=== PATIENT | female | born 1930 | race Caucasian/White ===

== ENCOUNTER 2017-07-20 13:36 | Inpatient (IN) | payer MEDICARE, MEDICAID ==
[~2017-07-20] VITALS: Ht 149.9 cm; Wt 55.8 kg
--- NOTE | 2017-07-20 13:36 | NUR ---
BIBRA 86 FOR GENERALIZED WEAKNESS SINCE TODAY AND PER FAMILY REQUESTS "CHECKUP". NAD NOTED. PT NONVERBAL, OPENS EYES. RR EVEN AND UNLABORED. VSS. PENDING MD SALMON.
--- NOTE | 2017-07-20 13:41 | NUR ---
CALL RECEIVED FROM [facility],[phone], SON'S NUMBER IS [phone]
[2017-07-20] MEDS ORDERED: IV NS 0.9% 500 ML BAG IV ONE (14:00)
[2017-07-20 14:01] LABS: BASOPHILS # (AUTO) 0.1 /CMM (0.0-0.2); BASOPHILS % (AUTO) 0.6 % (0.0-2.0); EOSINOPHILS # (AUTO) 0.4 /CMM (0.0-0.7); EOSINOPHILS % (AUTO) 3.4 % (0.0-6.0); HEMATOCRIT 34 % (33-45); HEMOGLOBIN 11.2 g/dL (11.5-14.8); LYMPHOCYTES # (AUTO) 1.9 /CMM (0.8-4.8); LYMPHOCYTES % (AUTO) 17.5 % (20.0-44.0); MEAN CORPUSCULAR HEMOGLOBIN 29 PG (26.0-33.0); MEAN CORPUSCULAR HGB CONC 33 g/dl (31.0-36.0); MEAN CORPUSCULAR VOLUME 89 fL (82-100); MONOCYTES # (AUTO) 0.6 /CMM (0.1-1.30); MONOCYTES % (AUTO) 5.3 % (2.0-12.0); NEUTROPHILS % (AUTO) 73.2 % (43.0-81.0); PLATELET COUNT (AUTO) 420 /CMM (150-450); RDW COEFFICIENT OF VARIATION 14.4 (11.5-15.0); RED BLOOD CELL COUNT(AUTO) 3.85 MIL/uL (4.0-5.2)
[2017-07-20] MEDS ORDERED: SERT50TA PO (14:07)
[2017-07-20] MEDS ORDERED: LOSA50TA21 PO (14:07)
[2017-07-20] MEDS ORDERED: CLON0.5T4 PO (14:07)
[2017-07-20] MEDS ORDERED: LINA145C PO (14:07)
[2017-07-20] MEDS ORDERED: ALEN70TA45 PO (14:07)
[2017-07-20] MEDS ORDERED: DONE5TAB34 PO (14:07)
[2017-07-20] MEDS ORDERED: CELE-85 PO (14:07)
[2017-07-20] MEDS ORDERED: ASPI-991 PO (14:07)
[2017-07-20] MEDS ORDERED: MIRT30TA7 PO (14:07)
[2017-07-20] MEDS ORDERED: MEMA28CA PO (14:07)
[2017-07-20] MEDS ORDERED: BRIM5DRO3 RIGHTEYE (14:07)
[2017-07-20] MEDS ORDERED: LOVA20TA2 PO (14:07)
[2017-07-20] MEDS ORDERED: TRAM50TA2 PO (14:07)
[2017-07-20] MEDS ORDERED: ZOLP10TA6 PO (14:07)
[2017-07-20 14:09] LABS: CALCIUM, SERUM 8.8 mg/dL (8.5-10.1); CARBON DIOXIDE 22 mmol/L (21-32); CHLORIDE 109 mmol/L (98-107); CREATININE 3.1 mg/dL (0.6-1.3); GLUCOSE 99 mg/dL (74-106); POTASSIUM 5.1 mmol/L (3.5-5.1); SODIUM SERUM 141 mmol/L (136-145); UREA NITROGEN, BLOOD 57 mg/dL (7-18)
[2017-07-20] MEDS ORDERED: AMLO2.5T PO (14:15)
--- NOTE | 2017-07-20 14:19 | NUR ---
PT BACK FROM CT
[2017-07-20 14:24] LABS: TROPONIN I < 0.017 ng/mL (0.00-0.056)
--- NOTE | 2017-07-20 14:45 | NUR ---
URINE OBTAINED SENT TO LAB
[2017-07-20 14:54] LABS: APPEARANCE,URINE Clear (CLEAR); BILIRUBIN,URINE Negative (NEGATIVE); BLOOD, URINE Trace-intact Ery/uL (NEGATIVE); COLOR,URINE Yellow (YELLOW); KETONES,URINE Negative (NEGATIVE); LEUKOCYTE ESTERASE ,URINE Negative (NEGATIVE); NITRITE, URINE Negative (NEGATIVE); PH,URINE 5.5 (5.0-8.0); PROTEIN,URINE 30 mg/dl (NEGATIVE); UGLUCOSE Negative (NEGATIVE); UROBILINOGEN,URINE 0.2 EU/dL (0.2)
[2017-07-20 14:55] LABS: BACTERIA,URINE Few /HPF (None Seen); RBC,URINE 0-2 /HPF (0-2); SQUAMOUS EPITHELIAL CELL,UR Few /HPF (None Seen); WBC,URINE 0-2 /HPF (0-3)
--- NOTE | 2017-07-20 14:58 | NUR ---
DR SHORT,PCP, PAGED AT [phone]
--- NOTE | 2017-07-20 16:18 | NUR ---
REPORT GIVEN TO BLAKE LONDON FOR CORIN
[2017-07-20 17:15] VITALS: BP 156/69
--- NOTE | 2017-07-20 19:00 | NUR ---
MS RN OPENING NOTES PATIENT RESTING IN BED A/O X 2, NO ACUTE DISTRESS NOTED. BREATHING EVEN AND UNLABORED, NO SOB NOTED. SAFETY MEASURES IN PLACE, BED LOCKED AND IN LOWEST POSITION, CALL LIGHT IN REACH. WILL CONTINUE TO MONITOR.
--- NOTE | 2017-07-20 19:00 | NUR ---
RN Notes initial: 1710Recieved patient from ER. Patient admitted for generalized weakness and AMS. Patient alert oriented x2. No facial grimacing is noted. SPO2 at 92%, 2 L nasal cannula placed, and DR alerted. According to son, patient has not eaten in 3 days. Blood sugar assessed immediately and found to be 73. apple juice given to patient. HOB up, patient had no difficulty swallowing. According to son, patient has not urinated today. Bladderscan used: 145 ml noted. MARBLE MACHINE OPERATOR informed me that patient urinated slightly in diaper.Will continue to monitor for that. IV site patent and intact Patient is cooperative. when assessed, patient unable to follow my pen light. Patient unable to dorsiflex and plantarflex with lower extremities. Skin intact. However, slight redness noted on lower back. Patient kept clean and dry. Dr. Zuleta alerted that patient is admitted. According to Dr. Zuleta, she is not the admitting doctor. Dr. Ruiz alerted and aware of patient's labs. Dr. Ruiz will be putting in the orders. Patient stable. Nonlabored breathing noted on 2 L nasal cannula. Patient alert oriented x2. IV site patent and intact. Bed in lowest locked position. Call light within reach. Bed alarm on, endorsed to next shift
[2017-07-20 20:00] VITALS: BP 94/45
[2017-07-20] MEDS ORDERED: ZOLPIDEM TARTRATE 10 MG TABLET PO PRN (20:00)
[2017-07-20] MEDS ORDERED: Medication Not On Formulary EA (Linaclotide (Linzess) 145 MCG) PO PRN (20:00)
[2017-07-20] MEDS ORDERED: MAG HYDROX/AL HYDROX/SIMETH 30 ML UDC PO PRN (20:00)
[2017-07-20] MEDS ORDERED: ACETAMINOPHEN 325 MG TABLET PO PRN (20:00)
[2017-07-20] MEDS ORDERED: TRAMADOL HCL 50 MG TABLET PO PRN (20:00)
[2017-07-20] MEDS ORDERED: HYDROCODONE/APAP 5/325MG 1 EACH TABLET PO PRN (20:00)
[2017-07-20] MEDS ORDERED: Z GUARD REMEDY 2 OZ OINT TP PRN (20:00)
[2017-07-20] MEDS ORDERED: MAGNESIUM HYDROXIDE 30 ML UDC PO PRN (20:00)
[2017-07-20] MEDS ORDERED: ZOLPIDEM TARTRATE 5 MG TABLET PO PRN (20:00)
[2017-07-20] MEDS ORDERED: ONDANSETRON HCL/PF 4 MG/2 ML VIAL IVP PRN (20:00)
[2017-07-20 20:08] LABS: AMYLASE 91 U/L (25-115); LIPASE 147 U/L (73-393)
[2017-07-20] MEDS: BRIMONIDINE TARTRATE OPHT SOLN 5 ML BOTTLE RIGHTEYE SCH (20:23)
[2017-07-20] MEDS: IV NS 0.9% 1,000 ML IV PRN (20:23)
--- NOTE | 2017-07-20 21:33 | NUR ---
MS RN NOTES PLACED A CALL TO HOSPITALIST SPOKE TO DR HAWK AND RELAYED THERE IS NO DIET ORDER PER . CARINE ORDERED TO GIVE DIET ORDER REGULAR DIET NOTED AND CARRIED OUT
[2017-07-20] MEDS: MIRTAZAPINE 15 MG TABLET PO SCH (21:47)
[2017-07-20] MEDS: ATORVASTATIN 10 MG TABLET PO SCH (21:47)
[2017-07-20] MEDS ORDERED: clonazePAM 0.5 MG TABLET PO SCH (22:00)
[2017-07-20] MEDS ORDERED: LOVASTATIN (NON FORMULARY) 20 MG TABLET PO SCH (22:00)
--- NOTE | 2017-07-21 06:21 | NUR ---
MS RN CLOSING NOTES PATIENT COMFORTABLY ASLEEP AND EASILY AWAKEN, HEAD OF BED ELEVATED FOR BETTER LUNG EXPANSION ON 2LPM VIA NC 02 SAT AT 98%, IV SITE NO S/S OF INFILTRATED PATENT AND FLUSHED, NS RUNNING AT 75CC/HR INFUSING WELL. RESPIRATIONS EVEN AND UNLABORED. NO S/S OF ACUTE DISTRESS, NO SOB, SKIN WARM AND DRY TO TOUCH, AFEBRILE, ALL NURSING CARE RENDERED, NEEDS ATTENDED AND ANTICIPATED, KEPT CLEAN AND DRY AND COMFORTABLE, GOOD SKIN CARE PROVIDED. FREQUENT VISUAL CHECK DONE FOR SAFETY EVERY 2 HOURS. REPOSITIONED EVERY 2 HOURS FOR COMFORT AND SKIN MGT. SAFE HAZARD FREE ENVIRONMENT PROVIDED. CALL LIGHT WITHIN EASY TO REACH, ON LOW BED AT ALL TIMES TO ENSURE SAFETY, WILL ENDORSE TO THE NEXT SHIFT CONTINUE PLAN OF CARE.
[2017-07-21 06:55] VITALS: BP 132/64
[2017-07-21 06:57] LABS: BASOPHILS % (AUTO) 0.5 % (0.0-2.0); EOSINOPHILS # (AUTO) 0.4 /CMM (0.0-0.7); EOSINOPHILS % (AUTO) 4.8 % (0.0-6.0); HEMATOCRIT 33 % (33-45); HEMOGLOBIN 10.7 g/dL (11.5-14.8); LYMPHOCYTES # (AUTO) 1.8 /CMM (0.8-4.8); LYMPHOCYTES % (AUTO) 24.5 % (20.0-44.0); MEAN CORPUSCULAR HEMOGLOBIN 30 PG (26.0-33.0); MEAN CORPUSCULAR HGB CONC 33 g/dl (31.0-36.0); MEAN CORPUSCULAR VOLUME 91 fL (82-100); MONOCYTES # (AUTO) 0.4 /CMM (0.1-1.30); NEUTROPHILS # (AUTO) 4.8 /CMM (1.8-8.9); NEUTROPHILS % (AUTO) 64.2 % (43.0-81.0); PLATELET COUNT (AUTO) 338 /CMM (150-450); RDW COEFFICIENT OF VARIATION 14.9 (11.5-15.0); RED BLOOD CELL COUNT(AUTO) 3.64 MIL/uL (4.0-5.2); RETICULOCYTE COUNT 2.1 % (0.6-2.5); WHITE BLOOD COUNT (AUTO) 7.5 K/uL (4.3-11.0)
[2017-07-21 07:01] LABS: ALANINE AMINOTRANSFERASE 20 U/L (12-78); ALKALINE PHOSPHATASE 49 U/L (46-116); ASPARTATE AMINOTRANSFERASE 34 U/L (15-37); BILIRUBIN,DIRECT 0.1 mg/dL (0.0-0.2); BILIRUBIN,TOTAL 0.3 mg/dL (0.2-1.0); CALCIUM, SERUM 8.4 mg/dL (8.5-10.1); CARBON DIOXIDE 21 mmol/L (21-32); CHLORIDE 111 mmol/L (98-107); CHOLESTEROL 149 mg/dL (<200); CREATININE 2.6 mg/dL (0.6-1.3); GLUCOSE 75 mg/dL (74-106); HDL CHOLESTEROL 53 mg/dL (40-60); LDL 77 mg/dL (0-99); MAGNESIUM 2.4 mg/dL (1.8-2.4); PHOSPHORUS 4.1 mg/dL (2.5-4.9); POTASSIUM 4.8 mmol/L (3.5-5.1); PREALBUMIN 14.9 MG/DL (18.0-35.7); SODIUM SERUM 143 mmol/L (136-145); THYROID STIMULATING HORMONE 1.296 uIU/mL (0.358-3.74); TOTAL PROTEIN, SERUM 7.2 g/dL (6.4-8.2); TRIGLYCERIDES 121 mg/dL (30-150); UREA NITROGEN, BLOOD 51 mg/dL (7-18)
[2017-07-21 08:00] VITALS: BP 130/58
--- NOTE | 2017-07-21 08:02 | NUR ---
RN MS NOTES PATIENT ASLEEP BUT EASILY AROUSABLE, IVF INFUSING AND TOLERATING WELL, KEPT PATIENT COMFORTABLE, BREATHING EVEN AND UNLABORED, NO DISTRESS NOTED, NEEDS ATTENDED AND MET, CALL LIGHT WITHIN REACH, SAFETY MEASURES IN PLACED, BED ALARM ON, WILL CONTINUE TO MONITOR.
[2017-07-21 08:04] LABS: INR 0.9 (0.87-1.13); PROTHROMBIN TIME 9.4 SECS (9.5-12.7)
[2017-07-21 08:07] LABS: IRON, SERUM 20 ug/dl (50-175); TOTAL IRON BINDING CAPACITY 320 ug/dl (250-450)
[2017-07-21] MEDS: DONEPEZIL 5 MG TABLET PO SCH (08:57)
[2017-07-21] MEDS: ASPIRIN EC 81 MG TABLET.DR PO SCH (08:57)
[2017-07-21] MEDS: MEMANTINE HCL 5 MG TABLET PO SCH ×2 (08:57→16:42)
[2017-07-21] MEDS: SERTRALINE HCL 50 MG TABLET PO SCH (08:57)
[2017-07-21] MEDS: BRIMONIDINE TARTRATE OPHT SOLN 5 ML BOTTLE RIGHTEYE SCH ×2 (08:58→16:41)
[2017-07-21] MEDS: AMLODIPINE BESYLATE 2.5 MG TABLET PO SCH (08:58)
[2017-07-21 10:29] LABS: APPEARANCE,URINE CLEAR (CLEAR); BILIRUBIN,URINE NEGATIVE (NEGATIVE); BLOOD, URINE 1+ Ery/uL (NEGATIVE); COLOR,URINE YELLOW (YELLOW); KETONES,URINE NEGATIVE (NEGATIVE); LEUKOCYTE ESTERASE ,URINE NEGATIVE (NEGATIVE); NITRITE, URINE NEGATIVE (NEGATIVE); PROTEIN,URINE NEGATIVE (NEGATIVE); UGLUCOSE NEGATIVE (NEGATIVE); UROBILINOGEN,URINE 0.2 EU/dL (0.2)
[2017-07-21 10:53] LABS: BACTERIA,URINE Few /HPF (None Seen); MUCUS,URINE Few /LPF (None Seen); SQUAMOUS EPITHELIAL CELL,UR 0-2 /HPF (None Seen); URINE AMORPHOUS URATE Few /HPF (None Seen); WBC,URINE 0-2 /HPF (0-3)
--- NOTE | 2017-07-21 12:03 | NUR ---
RN MS NOTES INFORMED DR. TABARES, PATIENT'S SON REPORTED DISCONTINUANCE OF LINZESS AND CLONAZEPAM, PER , OK TO DC BOTH.
[2017-07-21 16:00] VITALS: BP 129/68
[2017-07-21] MEDS: IV NS 0.9% 1,000 ML IV PRN (16:40)
--- NOTE | 2017-07-21 18:48 | NUR ---
RN MS NOTES PATIENT ALERT AND ORIENTED X1-2, RESTING QUIETLY, BREATHING EVEN AND UNLABORED, NO DISTRESS NOTED, PIV ON LEFT AC PATENT AND FLUSHES WELL WITH NS RUNNING AT 75ML/HR, SKIN CARE PROVIDED, Z-GUARD APPLIED AND MEPILEX ON SACRAL AREA FOR PROTECTION, PATIENT WAS SEEN BY DR. KAY WITH NO ORDERS. NEEDS ATTENDED AND MET, CALL LIGHT WITHIN REACH, BED ALARM ON, SIDERAILS X2 UP, LOW BED AND LOCKED, WILL ENDORSE TO PAYROLL TAX ANALYST FOR CORIN.
--- NOTE | 2017-07-21 19:50 | NUR ---
RN INITIAL NOTES: RECEIVED REPORT FROM TERI LONDON, PT IN BED, SLEEPING, AROUSES TO TACTILE STIMULI, PT A/O X1-2 FARSI SPEAKING, NO FACIAL GRIMACE NOTED, APPEARS CALM AND COMFORTABLE,ON 2L VIA NC, RESPIRATION EVEN AND UNLABORED, PT HAS LEFT AC IV ACCESS PATENT AND FLUSHING WELL, INFUSING WITH NS AT 75ML/HR, BLE OFFLOADED. SAFETY PRECAUTIONS FOR FALL INITIATED CALL LIGHT IN REACH, WILL CONTINUE TO MONITOR.
[2017-07-21 20:00] VITALS: BP 124/66
[2017-07-21 20:25] VITALS: BP 124/66
[2017-07-21] MEDS: ATORVASTATIN 10 MG TABLET PO SCH (21:08)
[2017-07-21] MEDS: MIRTAZAPINE 15 MG TABLET PO SCH (21:08)
--- NOTE | 2017-07-21 21:30 | NUR ---
RN NOTES: PLACED ON HIGH FOWLERS POSITION, MEDICATION WAS CRUSHED PUT IN APPLE SAUCE, ALSO USED THICKENER MIXED INTO PT'S CRANBERRY JUICE, PT TOOK ALL DUE MEDS, NO ASPIRATION NOTED, ASPIRATION PROTOCOL FOLLOWED, ORAL CARE PROVIDED AFTER FEEING THE PT,
--- NOTE | 2017-07-21 22:00 | NUR ---
RN NOTES: IV ACCESS NOTED TO BE INFILTRATED, STOPPED THE IV, DISCONNECT THE PT, TRIED TO RESTART ANOTHER IV ACCESS BUT UNSUCCESSFUL, LITA LAGUNAS AND LITA CHRIS TRIED TWICE, BUT PT HAS VERY TINY VEINS AND THE NEEDLE IS BIGGER THAN HER VEIN, EVEN TRIED TO USE G24, BUT UNSUCCESSFUL, TRIED INSERTING ON FOOT, UNSUCCESSFUL, WILL CALL PLANNING ADVISOR BRUCE TO OBTAIN ORDER FOR MIDLINE, PT NEEDS IVF TO KEEP HER HYDRATED,
[2017-07-22] MEDS: IV NS 0.9% 1,000 ML IV PRN (05:46)
[2017-07-22 06:36] LABS: CALCIUM, SERUM 8.4 mg/dL (8.5-10.1); CARBON DIOXIDE 21 mmol/L (21-32); CHLORIDE 115 mmol/L (98-107); CREATININE 1.8 mg/dL (0.6-1.3); GLUCOSE 75 mg/dL (74-106); MAGNESIUM 1.9 mg/dL (1.8-2.4); PHOSPHORUS 3.3 mg/dL (2.5-4.9); POTASSIUM 4.7 mmol/L (3.5-5.1); SODIUM SERUM 146 mmol/L (136-145); UREA NITROGEN, BLOOD 36 mg/dL (7-18)
[2017-07-22 06:39] LABS: BASOPHILS # (AUTO) 0.1 /CMM (0.0-0.2); BASOPHILS % (AUTO) 0.8 % (0.0-2.0); EOSINOPHILS # (AUTO) 0.2 /CMM (0.0-0.7); EOSINOPHILS % (AUTO) 3.2 % (0.0-6.0); HEMATOCRIT 32 % (33-45); HEMOGLOBIN 10.2 g/dL (11.5-14.8); LYMPHOCYTES # (AUTO) 1.9 /CMM (0.8-4.8); LYMPHOCYTES % (AUTO) 24.8 % (20.0-44.0); MEAN CORPUSCULAR HEMOGLOBIN 29 PG (26.0-33.0); MEAN CORPUSCULAR HGB CONC 32 g/dl (31.0-36.0); MEAN CORPUSCULAR VOLUME 91 fL (82-100); MONOCYTES # (AUTO) 0.6 /CMM (0.1-1.30); MONOCYTES % (AUTO) 7.6 % (2.0-12.0); NEUTROPHILS # (AUTO) 4.8 /CMM (1.8-8.9); NEUTROPHILS % (AUTO) 63.6 % (43.0-81.0); PLATELET COUNT (AUTO) 314 /CMM (150-450); RDW COEFFICIENT OF VARIATION 14.9 (11.5-15.0); WHITE BLOOD COUNT (AUTO) 7.5 K/uL (4.3-11.0)
--- NOTE | 2017-07-22 07:00 | NUR ---
RN CLOSING NOTES: PT IN BED, ON 2L VIA NC, RESPIRATION EVEN AND UNLABORED, NO FACIAL GRIMACE NOTED, OBI MIDLINE IV ACCESS REMAINS PATENT AND FLUSHING WELL, INFUSING WITH NS AT 75ML/HR. VS REMAINS STABLE, NEEDS ATTENDED. SAFETY PRECAUTIONS FOR FALL REMAINS ENGAGED, CALL LIGHT IN REACH, WILL ENDORSE TO DAY RN FOR CORIN
--- NOTE | 2017-07-22 07:20 | NUR ---
MS RN Notes: Patient resting in bed. Non-labored breathing noted on 2 L nasal cannula. No facial grimaces noted. Midline on right upper arm patent and intact. Bed in lowest locked position. Call light within reach. Will continue to monitor.
[2017-07-22 08:00] VITALS: BP 136/69
[2017-07-22] MEDS: MEMANTINE HCL 5 MG TABLET PO SCH ×2 (09:43→16:09)
[2017-07-22] MEDS: ASPIRIN EC 81 MG TABLET.DR PO SCH (09:43)
[2017-07-22] MEDS: AMLODIPINE BESYLATE 2.5 MG TABLET PO SCH (09:45)
[2017-07-22] MEDS: DONEPEZIL 5 MG TABLET PO SCH (09:45)
[2017-07-22] MEDS: SERTRALINE HCL 50 MG TABLET PO SCH (09:45)
[2017-07-22] MEDS: BRIMONIDINE TARTRATE OPHT SOLN 5 ML BOTTLE RIGHTEYE SCH ×2 (10:08→16:10)
--- NOTE | 2017-07-22 11:10 | NUR ---
RN NOTES: PATIENT REFUSED TO EAT BREAKFAST IN THE MORNING. PATIENT OFFERED MULTIPLE TIMES. PATIENT DID DRINK A BOX OF ORANGE JUICE. DR TABARES ORDERED BOOST. IS AWARE OF RECENT LAB, FLUIDS TO BE STOPPED TODAY DUE TO THE INCREASE IN SODIUM
[2017-07-22] MEDS: IV 1/2NS 1000 ML 1,000 ML IV PRN (12:33)
[2017-07-22] MEDS: BOOST PLUS FOOD-CHOCLATE 237 ML BOX PO SCH ×2 (15:49→16:12)
[2017-07-22 16:00] VITALS: BP 129/79
--- NOTE | 2017-07-22 18:43 | NUR ---
MS RN Closing Notes: Patient resting in bed. Non-labored breathing noted on 2 L nasal cannula. No facial grimaces noted. Patient alert oriented x2. Midline on right upper arm patent and intact. Bed in lowest locked position. Call light within reach. Will endorse to next shift
--- NOTE | 2017-07-22 18:49 | NUR ---
MS RN Closing Notes: Patient resting in bed. Non-labored breathing noted on 2 L nasal cannula. No facial grimaces noted. Patient alert oriented x2. Midline on right upper arm patent and intact. Bed in lowest locked position. During shift, patient turned and repositioned every 2 hours. Patient kept clean and dry. Call light within reach. Will endorse to next shift
--- NOTE | 2017-07-22 19:35 | NUR ---
RN INITIAL NOTES: RECEIVED REPORT FROM BLAKE LONDON, PT IN BED, SLEEPING, AROUSES TO TACTILE STIMULI, PT A/O X2 FARSI SPEAKING, NO FACIAL GRIMACE NOTED, APPEARS CALM AND COMFORTABLE,ON 2L VIA NC, RESPIRATION EVEN AND UNLABORED, SON AT BED SIDE, PER SON PT ABLE TO EAT 5 SPOONFUL OF SOUP,PT HAS OBI MIDLINE, PATENT AND FLUSHING WELL, INFUSING WITH 1/2 NS AT 75ML/HR, BLE OFFLOADED. SAFETY PRECAUTIONS FOR FALL INITIATED CALL LIGHT IN REACH, WILL CONTINUE TO MONITOR.
[2017-07-22 20:00] VITALS: BP 138/74
[2017-07-22] MEDS: MIRTAZAPINE 15 MG TABLET PO SCH (21:48)
[2017-07-22] MEDS: ATORVASTATIN 10 MG TABLET PO SCH (21:48)
--- NOTE | 2017-07-22 21:48 | NUR ---
RN NOTES: DUE MEDS GIVEN AT THIS TIME, PT ABLE TO SWALLOW MEDICATION. FEED THE PT WITH APPLE SAUCE AND CRANBERRY JUICE WITH THICKENER, PT HAS POOR ORAL INTAKE, NO ASPIRATION NOTED,
[2017-07-23] MEDS: IV 1/2NS 1000 ML 1,000 ML IV PRN ×2 (00:08→15:32)
[2017-07-23 06:19] LABS: BASOPHILS % (AUTO) 0.5 % (0.0-2.0); EOSINOPHILS # (AUTO) 0.1 /CMM (0.0-0.7); EOSINOPHILS % (AUTO) 1.8 % (0.0-6.0); HEMATOCRIT 28 % (33-45); HEMOGLOBIN 9.3 g/dL (11.5-14.8); LYMPHOCYTES # (AUTO) 1.7 /CMM (0.8-4.8); LYMPHOCYTES % (AUTO) 20.5 % (20.0-44.0); MEAN CORPUSCULAR HEMOGLOBIN 30 PG (26.0-33.0); MEAN CORPUSCULAR HGB CONC 33 g/dl (31.0-36.0); MEAN CORPUSCULAR VOLUME 90 fL (82-100); MONOCYTES # (AUTO) 0.7 /CMM (0.1-1.30); MONOCYTES % (AUTO) 7.9 % (2.0-12.0); NEUTROPHILS # (AUTO) 5.8 /CMM (1.8-8.9); NEUTROPHILS % (AUTO) 69.3 % (43.0-81.0); PLATELET COUNT (AUTO) 304 /CMM (150-450); RDW COEFFICIENT OF VARIATION 14.3 (11.5-15.0); RED BLOOD CELL COUNT(AUTO) 3.14 MIL/uL (4.0-5.2); WHITE BLOOD COUNT (AUTO) 8.3 K/uL (4.3-11.0)
--- NOTE | 2017-07-23 06:41 | NUR ---
RN CLOSING NOTES: PT IN BED, SLEEPING, NO FACIAL GRIMACE NOTED, APPEARS CALM AND COMFORTABLE, ON 2L VIA NC, RESPIRATION EVEN AND UNLABORED, OBI MIDLINE REMAINS PATENT AND FLUSHING WELL, INFUSING WITH 1/2 NS AT 75ML/HR. VS REMAINS STABLE, NEEDS ATTENDED. SAFETY PRECAUTIONS FOR FALL REMAINS ENGAGED, CALL LIGHT IN REACH, WILL ENDORSE TO DAY RN FOR CORIN
[2017-07-23 06:47] LABS: CALCIUM, SERUM 8.2 mg/dL (8.5-10.1); CARBON DIOXIDE 21 mmol/L (21-32); CHLORIDE 115 mmol/L (98-107); CREATININE 1.5 mg/dL (0.6-1.3); GLUCOSE 86 mg/dL (74-106); MAGNESIUM 1.7 mg/dL (1.8-2.4); POTASSIUM 4.2 mmol/L (3.5-5.1); SODIUM SERUM 145 mmol/L (136-145); UREA NITROGEN, BLOOD 26 mg/dL (7-18)
--- NOTE | 2017-07-23 07:18 | NUR ---
RN Initial Notes: Patient resting in bed. Patient alert oriented x2. Non-labored breathing noted on 2 L nasal cannula. No facial grimaces noted. Midline on right upper arm patent and intact. Bed in lowest locked position, and call light within reach. Will continue to monitor.
[2017-07-23 08:00] VITALS: BP 155/81
[2017-07-23] MEDS: ASPIRIN EC 81 MG TABLET.DR PO SCH (08:28)
[2017-07-23] MEDS: SERTRALINE HCL 50 MG TABLET PO SCH (08:28)
[2017-07-23] MEDS: DONEPEZIL 5 MG TABLET PO SCH (08:28)
[2017-07-23] MEDS: MEMANTINE HCL 5 MG TABLET PO SCH ×2 (08:28→16:30)
[2017-07-23] MEDS: AMLODIPINE BESYLATE 2.5 MG TABLET PO SCH (08:29)
[2017-07-23] MEDS: BRIMONIDINE TARTRATE OPHT SOLN 5 ML BOTTLE RIGHTEYE SCH ×2 (08:29→16:31)
[2017-07-23] MEDS: BOOST PLUS FOOD-CHOCLATE 237 ML BOX PO SCH ×2 (10:51→16:30)
[2017-07-23] MEDS: Magnesium 1GM/D5W 100ML PREMIX 100 ML IV SCH ×2 (10:55→12:29)
[2017-07-23] MEDS ORDERED: K PHOS NEUTRAL 250 MG TABLET PO ONE (11:00)
[2017-07-23 16:00] VITALS: BP 149/74
--- NOTE | 2017-07-23 17:00 | NUR ---
MS RN CLOSING: PATIENT DISCHARGED TO [facility] PER MD ORDERS. NONLABORED BREATHING NOTED ON 2 L NASAL CANNULA. NO SIGNS OF DISTRESS NOTED. NO FACIAL GRIMACES NOTED. PATIENT ALERT ORIENTED X2, VERBAL. SON, MARY, INFORMED OF DISCHARGE. VALUABLES ACCOUNTED FOR. 1 NIGHT GOWN WAS PART OF PATIENT'S BELONGINGS THAT WAS TAKEN HOME ON ADMISSION DAY BY SON. SON AND PATIENT EDUCATED ON EXISTCARE. SON SAID HE WILL FOLLOW UP WITH THE PATIENT'S VACCINATIONS. ACCORDING TO HIM PATIENT HAS RECEIVED BUT UNSURE WHEN. SACRAL REDNESS SKIN PICTURE IN CHART. MIDLINE TAKEN OUT, NO SIGNS OF DISTRESS NOR ADVERSE EFFECTS ARE NOTED. REPORT GIVEN TO LITA FRAZIER, AT [facility]. PATIENT LEFT VIA AMBULANCE.
[2017-07-24] MEDS ORDERED: ALENDRONATE 70 MG TABLET PO SCH (09:00)
== END 2017-07-23 17:00 | DRG 682 ==
LOC: ER 13:38 → MED 16:40
PROVIDERS: ADMIT Internal Medicine; ATTEND Internal Medicine
PROC: 05H533Z Insertion of Infusion Device into Right Subclavian Vein, Percutaneous Approach (ICD-10-PCS; principal; 2017-07-22)
DX: N17.0 Acute kidney failure with tubular necrosis (principal); G93.41 Metabolic encephalopathy; E87.0 Hyperosmolality and hypernatremia; G62.9 Polyneuropathy, unspecified; E86.0 Dehydration; F32.9 Major depressive disorder, single episode, unspecified; E78.5 Hyperlipidemia, unspecified; I12.9 Hypertensive chronic kidney disease with stage 1 through stage 4 chronic kidney disease, or unspecified chronic kidney disease; N18.9 Chronic kidney disease, unspecified; K21.9 Gastro-esophageal reflux disease without esophagitis; L98.9 Disorder of the skin and subcutaneous tissue, unspecified; F03.90 Unspecified dementia, unspecified severity, without behavioral disturbance, psychotic disturbance, mood disturbance, and anxiety; D64.9 Anemia, unspecified; H40.9 Unspecified glaucoma
CPT/HCPCS: 36415; 36569; 70450-TC; 71010-TC; 80048-TC; 80053-TC; 80061-TC; 80076-TC; 81000-TC; 82150-TC; 82746; 82962-TC; 83540-TC; 83690-TC; 83735-TC; 84100-TC; 84134-TC; 84443-TC; 84484-TC; 85025-TC; 85045-TC; 85652-TC; 85730-TC; 87040-TC; 87081-TC; 87086-TC; 87186-TC; 92611-TC; 93307-TC; A4606; A6402; J3475; J3490; J7030; J7040; Z7610

== ENCOUNTER 2018-02-07 17:10 | Inpatient (IN) | payer MEDICARE, MEDICAID ==
[~2018-02-07] VITALS: Ht 152.4 cm; Wt 43.5 kg
[~2018-02-07 17:10] MED LIST: ALEN70TA45 PO; AMLO2.5T3 PO; ASPI-1152 PO; BRIM5DRO3 RIGHTEYE; CLON0.5T12 PO; DONE5TAB34 PO; LINA145C PO; LOSA50TA21 PO; LOVA20TA2 PO; MEMA28CA PO
[2018-02-07 17:43] LABS: BASOPHILS % (AUTO) 0.3 % (0.0-2.0); EOSINOPHILS % (AUTO) 0.7 % (0.0-6.0); HEMATOCRIT 32 % (33-45); HEMOGLOBIN 10.7 g/dL (11.5-14.8); LYMPHOCYTES # (AUTO) 1.8 /CMM (0.8-4.8); LYMPHOCYTES % (AUTO) 17.5 % (20.0-44.0); MEAN CORPUSCULAR HGB CONC 34 g/dl (31.0-36.0); MEAN CORPUSCULAR VOLUME 89 fL (82-100); MONOCYTES # (AUTO) 0.8 /CMM (0.1-1.30); MONOCYTES % (AUTO) 7.6 % (2.0-12.0); NEUTROPHILS # (AUTO) 7.3 /CMM (1.8-8.9); NEUTROPHILS % (AUTO) 73.9 % (43.0-81.0); PLATELET COUNT (AUTO) 330 /CMM (150-450); RDW COEFFICIENT OF VARIATION 15.8 (11.5-15.0); RED BLOOD CELL COUNT(AUTO) 3.57 MIL/uL (4.0-5.2)
[2018-02-07 17:56] LABS: CALCIUM, SERUM 9.3 mg/dL (8.5-10.1); CARBON DIOXIDE 18 mmol/L (21-32); CHLORIDE 116 mmol/L (98-107); CREATININE 3.4 mg/dL (0.6-1.3); GLUCOSE 81 mg/dL (74-106); POTASSIUM 4.5 mmol/L (3.5-5.1); SODIUM SERUM 149 mmol/L (136-145); UREA NITROGEN, BLOOD 56 mg/dL (7-18)
[2018-02-07 17:59] LABS: INR 0.99 (0.85-1.15)
[2018-02-07 18:02] LABS: ALANINE AMINOTRANSFERASE 12 U/L (12-78); ALBUMIN 2.5 g/dL (3.4-5.0); ALKALINE PHOSPHATASE 48 U/L (46-116); ASPARTATE AMINOTRANSFERASE 13 U/L (15-37); BILIRUBIN,DIRECT 0.1 mg/dL (0.0-0.2); BILIRUBIN,TOTAL 0.3 mg/dL (0.2-1.0)
[2018-02-07 18:04] LABS: TROPONIN I < 0.017 ng/mL (0.00-0.056)
[2018-02-07 18:07] LABS: APPEARANCE,URINE Cloudy (CLEAR); BILIRUBIN,URINE Negative (NEGATIVE); BLOOD, URINE Moderate Ery/uL (NEGATIVE); COLOR,URINE Yellow (YELLOW); KETONES,URINE Negative (NEGATIVE); LEUKOCYTE ESTERASE ,URINE Trace (NEGATIVE); NITRITE, URINE Negative (NEGATIVE); PH,URINE 5.5 (5.0-8.0); PROTEIN,URINE 30 mg/dl (NEGATIVE); UGLUCOSE Negative (NEGATIVE); UROBILINOGEN,URINE 0.2 EU/dL (0.2)
[2018-02-07 18:10] LABS: BACTERIA,URINE Few /HPF (None Seen); SQUAMOUS EPITHELIAL CELL,UR Few /HPF (None Seen)
[2018-02-07] MEDS ORDERED: IV NS 0.9% 500 ML BAG IV ONE (18:30)
[2018-02-07] MEDS ORDERED: SERT50TA PO (18:31)
[2018-02-07] MEDS ORDERED: MIRT30TA7 PO (18:31)
[2018-02-07] MEDS ORDERED: ZOLP10TA6 PO (18:31)
[2018-02-07] MEDS ORDERED: CELE-85 PO (18:31)
[2018-02-07] MEDS ORDERED: IV NS 0.9% 1,000 ML BAG IV ONE (19:00)
[2018-02-07] MEDS ORDERED: PIPERACILLIN /TAZOBACTAM 2.25 G in IV D5W 50 ML IV ONE (19:00)
[2018-02-07 20:30] VITALS: BP 119/62
[2018-02-07] MEDS ORDERED: HYDROCODONE/APAP 5/325MG 1 EACH TABLET PO PRN (21:00)
[2018-02-07] MEDS ORDERED: ACETAMINOPHEN 325 MG TABLET PO PRN (21:00)
[2018-02-07] MEDS ORDERED: ONDANSETRON HCL/PF 4 MG/2 ML VIAL IVP PRN (21:00)
[2018-02-07] MEDS ORDERED: MAG HYDROX/AL HYDROX/SIMETH 30 ML UDC PO PRN (21:00)
[2018-02-07] MEDS ORDERED: IV D5/ 0.9% NACL 1,000 ML IV PRN (21:30)
[2018-02-07] MEDS ORDERED: DEXTROSE 50%-WATER 50 ML DISP.SYRIN IV PRN (21:30)
[2018-02-07] MEDS: HEPARIN SODIUM, PORCINE 5000 UNITS/1 ML VIAL SQ SCH (21:31)
[2018-02-07] MEDS ORDERED: CEFTRIAXONE 1 G VIAL ONE (21:34)
[2018-02-07] MEDS: CEFTRIAXONE 1 G in IV D5W 50 ML IV SCH (21:38)
[2018-02-07] MEDS: BLOOD SUGAR DIAGNOSTIC 1 EACH STRIP IN SCH (23:38)
[2018-02-08] MEDS: BLOOD SUGAR DIAGNOSTIC 1 EACH STRIP IN SCH ×4 (05:28→23:12)
[2018-02-08 06:31] LABS: BASOPHILS % (AUTO) 0.4 % (0.0-2.0); EOSINOPHILS % (AUTO) 1.1 % (0.0-6.0); HEMATOCRIT 28 % (33-45); HEMOGLOBIN 9.1 g/dL (11.5-14.8); LYMPHOCYTES # (AUTO) 1.2 /CMM (0.8-4.8); LYMPHOCYTES % (AUTO) 17.6 % (20.0-44.0); MEAN CORPUSCULAR HGB CONC 33 g/dl (31.0-36.0); MEAN CORPUSCULAR VOLUME 89 fL (82-100); MONOCYTES # (AUTO) 0.6 /CMM (0.1-1.30); MONOCYTES % (AUTO) 9.6 % (2.0-12.0); NEUTROPHILS # (AUTO) 4.8 /CMM (1.8-8.9); NEUTROPHILS % (AUTO) 71.3 % (43.0-81.0); PLATELET COUNT (AUTO) 272 /CMM (150-450); RDW COEFFICIENT OF VARIATION 16.3 (11.5-15.0); WHITE BLOOD COUNT (AUTO) 6.7 K/uL (4.3-11.0)
[2018-02-08 06:52] LABS: CALCIUM, SERUM 8.1 mg/dL (8.5-10.1); CARBON DIOXIDE 17 mmol/L (21-32); CHLORIDE 117 mmol/L (98-107); CREATININE 2.8 mg/dL (0.6-1.3); GLUCOSE 138 mg/dL (74-106); MAGNESIUM 1.6 mg/dL (1.8-2.4); PHOSPHORUS 2.1 mg/dL (2.5-4.9); POTASSIUM 3.2 mmol/L (3.5-5.1); SODIUM SERUM 148 mmol/L (136-145); UREA NITROGEN, BLOOD 45 mg/dL (7-18)
[2018-02-08 06:56] LABS: CHOLESTEROL 119 mg/dL (<200); HDL CHOLESTEROL 43 mg/dL (40-60); LDL 55 mg/dL (0-99); TRIGLYCERIDES 118 mg/dL (30-150)
[2018-02-08 08:00] VITALS: BP 108/51
[2018-02-08] MEDS: HEPARIN SODIUM, PORCINE 5000 UNITS/1 ML VIAL SQ SCH ×2 (09:12→22:23)
[2018-02-08] MEDS ORDERED: Magnesium 1 GM/2 ML VIAL IV ONE (09:30)
[2018-02-08] MEDS ORDERED: POTASSIUM CL. PREMIX PERIPHER. 50 ML IV SCH (09:30)
[2018-02-08] MEDS ORDERED: IV D5W 1,000 ML IV ONE (10:00)
[2018-02-08] MEDS: Magnesium 1GM/D5W 100ML PREMIX 100 ML IV SCH ×2 (10:23→11:08)
[2018-02-08] MEDS: Potassium Phosphate meq 11 MEQ in IV D5W 100 ML IV SCH ×2 (12:33→14:48)
[2018-02-08 16:00] VITALS: BP 107/58
[2018-02-08] MEDS: ALPHAGAN P 0.1% EACHEYE SCH (17:54)
[2018-02-08 20:00] VITALS: BP 141/68
[2018-02-08 21:33] VITALS: BP 141/68
[2018-02-08] MEDS: CEFTRIAXONE 1 G in IV D5W 50 ML IV SCH (22:22)
[2018-02-08 22:45] LABS: APPEARANCE,URINE CLOUDY (CLEAR); BILIRUBIN,URINE NEGATIVE (NEGATIVE); BLOOD, URINE 1+ Ery/uL (NEGATIVE); COLOR,URINE YELLOW (YELLOW); KETONES,URINE NEGATIVE (NEGATIVE); LEUKOCYTE ESTERASE ,URINE 3+ (NEGATIVE); NITRITE, URINE NEGATIVE (NEGATIVE); PROTEIN,URINE TRACE mg/dl (NEGATIVE); UGLUCOSE NEGATIVE (NEGATIVE); UROBILINOGEN,URINE 0.2 EU/dL (0.2)
[2018-02-08 23:05] LABS: BACTERIA,URINE 1+ /HPF (None Seen); SQUAMOUS EPITHELIAL CELL,UR Few /HPF (None Seen); WBC,URINE 81-100 /HPF (0-3)
[2018-02-09 01:54] LABS: EOSINOPHIL,URINE None Seen
[2018-02-09] MEDS: BLOOD SUGAR DIAGNOSTIC 1 EACH STRIP IN SCH ×3 (05:47→17:14)
[2018-02-09 07:40] VITALS: BP 113/75
[2018-02-09 08:00] VITALS: BP 113/75
[2018-02-09] MEDS: ALPHAGAN P 0.1% EACHEYE SCH ×2 (08:50→17:12)
[2018-02-09] MEDS: HEPARIN SODIUM, PORCINE 5000 UNITS/1 ML VIAL SQ SCH ×2 (08:53→22:45)
[2018-02-09] MEDS: BRIMONIDINE TARTRATE OPHT SOLN 5 ML BOTTLE EACHEYE SCH ×3 (09:00→17:18)
[2018-02-09 10:18] LABS: BASOPHILS % (AUTO) 0.4 % (0.0-2.0); EOSINOPHILS % (AUTO) 2.2 % (0.0-6.0); HEMATOCRIT 26 % (33-45); HEMOGLOBIN 8.8 g/dL (11.5-14.8); LYMPHOCYTES # (AUTO) 1.5 /CMM (0.8-4.8); LYMPHOCYTES % (AUTO) 23.4 % (20.0-44.0); MEAN CORPUSCULAR HGB CONC 33 g/dl (31.0-36.0); MEAN CORPUSCULAR VOLUME 88 fL (82-100); MONOCYTES # (AUTO) 0.5 /CMM (0.1-1.30); MONOCYTES % (AUTO) 7.9 % (2.0-12.0); NEUTROPHILS # (AUTO) 4.1 /CMM (1.8-8.9); NEUTROPHILS % (AUTO) 66.1 % (43.0-81.0); PLATELET COUNT (AUTO) 274 /CMM (150-450); RDW COEFFICIENT OF VARIATION 16.2 (11.5-15.0); RED BLOOD CELL COUNT(AUTO) 3.01 MIL/uL (4.0-5.2); WHITE BLOOD COUNT (AUTO) 6.2 K/uL (4.3-11.0)
[2018-02-09 10:48] LABS: CARBON DIOXIDE 20 mmol/L (21-32); CHLORIDE 112 mmol/L (98-107); CREATININE 2.4 mg/dL (0.6-1.3); GLUCOSE 119 mg/dL (74-106); POTASSIUM 2.9 mmol/L (3.5-5.1); SODIUM SERUM 144 mmol/L (136-145); UREA NITROGEN, BLOOD 33 mg/dL (7-18)
[2018-02-09] MEDS ORDERED: Potassium Chloride 20 MEQ in IV D5W 1,000 ML IV PRN (11:30)
[2018-02-09] MEDS: POTASSIUM CL. PREMIX PERIPHER. 50 ML IV SCH ×2 (11:45→12:30)
[2018-02-09] MEDS ORDERED: POTASSIUM CHLORIDE 10 MEQ TABLET.SA PO ONE (14:00)
[2018-02-09] MEDS ORDERED: Potassium Chloride 20 MEQ in IV D5W 1,000 ML IV ONE (14:00)
[2018-02-09 16:00] VITALS: BP_SYST 100; BP_DIAS 63; BP_DIAS 65
[2018-02-09 20:00] VITALS: BP 90/51
[2018-02-09] MEDS: CEFTRIAXONE 1 G in IV D5W 50 ML IV SCH (22:35)
[2018-02-10] MEDS: BLOOD SUGAR DIAGNOSTIC 1 EACH STRIP IN SCH ×5 (00:13→23:56)
[2018-02-10 06:43] LABS: BASOPHILS % (AUTO) 0.6 % (0.0-2.0); EOSINOPHILS % (AUTO) 3.4 % (0.0-6.0); HEMATOCRIT 27 % (33-45); HEMOGLOBIN 9.1 g/dL (11.5-14.8); LYMPHOCYTES # (AUTO) 2.5 /CMM (0.8-4.8); MEAN CORPUSCULAR HGB CONC 33 g/dl (31.0-36.0); MEAN CORPUSCULAR VOLUME 89 fL (82-100); MONOCYTES # (AUTO) 0.5 /CMM (0.1-1.30); MONOCYTES % (AUTO) 8.4 % (2.0-12.0); NEUTROPHILS # (AUTO) 2.9 /CMM (1.8-8.9); NEUTROPHILS % (AUTO) 46.6 % (43.0-81.0); PLATELET COUNT (AUTO) 269 /CMM (150-450); RDW COEFFICIENT OF VARIATION 16.5 (11.5-15.0); RED BLOOD CELL COUNT(AUTO) 3.07 MIL/uL (4.0-5.2); WHITE BLOOD COUNT (AUTO) 6.2 K/uL (4.3-11.0)
[2018-02-10 07:09] LABS: CARBON DIOXIDE 18 mmol/L (21-32); CHLORIDE 111 mmol/L (98-107); CREATININE 2.2 mg/dL (0.6-1.3); GLUCOSE 92 mg/dL (74-106); MAGNESIUM 1.9 mg/dL (1.8-2.4); PHOSPHORUS 2.3 mg/dL (2.5-4.9); POTASSIUM 4.9 mmol/L (3.5-5.1); SODIUM SERUM 139 mmol/L (136-145); UREA NITROGEN, BLOOD 27 mg/dL (7-18)
[2018-02-10 08:10] VITALS: BP_SYST 117
[2018-02-10] MEDS: ALPHAGAN P 0.1% EACHEYE SCH ×2 (09:09→17:14)
[2018-02-10] MEDS: BRIMONIDINE TARTRATE OPHT SOLN 5 ML BOTTLE EACHEYE SCH ×2 (09:09→17:14)
[2018-02-10 09:29] LABS: APPEARANCE,URINE SL CLOUDY (CLEAR); BILIRUBIN,URINE NEGATIVE (NEGATIVE); BLOOD, URINE TRACE-INTA Ery/uL (NEGATIVE); COLOR,URINE YELLOW (YELLOW); KETONES,URINE NEGATIVE (NEGATIVE); LEUKOCYTE ESTERASE ,URINE 3+ (NEGATIVE); NITRITE, URINE NEGATIVE (NEGATIVE); PROTEIN,URINE NEGATIVE (NEGATIVE); UGLUCOSE NEGATIVE (NEGATIVE); UROBILINOGEN,URINE 0.2 EU/dL (0.2)
[2018-02-10 09:41] LABS: CREATININE, URINE 43.1 MG/DL (30.0-125.0); URINE TOTAL PROTEIN 33.3 mg/dL (0-11.9)
[2018-02-10 09:54] LABS: BACTERIA,URINE Few /HPF (None Seen); SQUAMOUS EPITHELIAL CELL,UR Few /HPF (None Seen); WBC,URINE TOO NUMEROUS TO COUN /HPF (0-3)
[2018-02-10 10:23] LABS: EOSINOPHIL,URINE None Seen
[2018-02-10] MEDS ORDERED: NEUTRA PHOS 1 POWD.PACKET GT ONE (11:00)
[2018-02-10] MEDS: HEPARIN SODIUM, PORCINE 5000 UNITS/1 ML VIAL SQ SCH ×2 (11:15→20:24)
[2018-02-10] MEDS: IV D5W 1,000 ML IV PRN (12:57)
[2018-02-10] MEDS: ENSURE ENLIVE CHOC 237 ML CAN PO SCH ×2 (13:30→17:25)
[2018-02-10] MEDS: MEGESTROL ACETATE 40 MG TABLET PO SCH ×2 (14:23→17:14)
[2018-02-10 16:11] VITALS: BP 114/60
[2018-02-10 20:00] VITALS: BP 125/64
[2018-02-10] MEDS: CEFTRIAXONE 1 G in IV D5W 50 ML IV SCH (20:23)
[2018-02-11] MEDS: BLOOD SUGAR DIAGNOSTIC 1 EACH STRIP IN SCH ×3 (05:01→18:11)
[2018-02-11] MEDS: IV D5W 1,000 ML IV PRN ×2 (05:05→15:55)
[2018-02-11 06:30] LABS: BASOPHILS % (AUTO) 0.7 % (0.0-2.0); EOSINOPHILS % (AUTO) 2.9 % (0.0-6.0); HEMATOCRIT 28 % (33-45); HEMOGLOBIN 9.2 g/dL (11.5-14.8); LYMPHOCYTES # (AUTO) 1.9 /CMM (0.8-4.8); MEAN CORPUSCULAR HGB CONC 33 g/dl (31.0-36.0); MEAN CORPUSCULAR VOLUME 88 fL (82-100); MONOCYTES # (AUTO) 0.6 /CMM (0.1-1.30); MONOCYTES % (AUTO) 10.1 % (2.0-12.0); NEUTROPHILS # (AUTO) 3.2 /CMM (1.8-8.9); NEUTROPHILS % (AUTO) 54.3 % (43.0-81.0); PLATELET COUNT (AUTO) 287 /CMM (150-450); RDW COEFFICIENT OF VARIATION 16.4 (11.5-15.0); RED BLOOD CELL COUNT(AUTO) 3.13 MIL/uL (4.0-5.2); WHITE BLOOD COUNT (AUTO) 5.9 K/uL (4.3-11.0)
[2018-02-11 06:40] LABS: CALCIUM, SERUM 8.5 mg/dL (8.5-10.1); CARBON DIOXIDE 17 mmol/L (21-32); CHLORIDE 110 mmol/L (98-107); GLUCOSE 96 mg/dL (74-106); MAGNESIUM 1.8 mg/dL (1.8-2.4); PHOSPHORUS 3.2 mg/dL (2.5-4.9); POTASSIUM 4.5 mmol/L (3.5-5.1); SODIUM SERUM 139 mmol/L (136-145); UREA NITROGEN, BLOOD 22 mg/dL (7-18)
[2018-02-11 08:00] VITALS: BP 145/62
[2018-02-11] MEDS: ENSURE ENLIVE CHOC 237 ML CAN PO SCH ×2 (09:06→16:28)
[2018-02-11] MEDS: BRIMONIDINE TARTRATE OPHT SOLN 5 ML BOTTLE EACHEYE SCH ×2 (09:12→16:14)
[2018-02-11] MEDS: MEGESTROL ACETATE 40 MG TABLET PO SCH ×2 (09:12→16:12)
[2018-02-11] MEDS: ALPHAGAN P 0.1% EACHEYE SCH ×2 (09:13→16:14)
[2018-02-11] MEDS: HEPARIN SODIUM, PORCINE 5000 UNITS/1 ML VIAL SQ SCH ×2 (09:20→21:22)
[2018-02-11] MEDS: MEMANTINE HCL 5 MG TABLET PO SCH ×2 (13:39→16:12)
[2018-02-11 16:00] VITALS: BP 139/64
[2018-02-11 20:00] VITALS: BP_SYST 143; BP_SYST 90; BP_DIAS 63; BP_DIAS 68
[2018-02-11 20:04] VITALS: BP 90/63
[2018-02-11] MEDS: clonazePAM 0.5 MG TABLET PO SCH (21:21)
[2018-02-11] MEDS: CEFTRIAXONE 1 G in IV D5W 50 ML IV SCH (21:21)
[2018-02-11] MEDS: MIRTAZAPINE 15 MG TABLET PO SCH (21:21)
[2018-02-12] MEDS: BLOOD SUGAR DIAGNOSTIC 1 EACH STRIP IN SCH ×4 (00:14→16:48)
[2018-02-12 07:42] VITALS: BP 124/63
[2018-02-12] MEDS: ENSURE ENLIVE CHOC 237 ML CAN PO SCH ×2 (08:00→16:47)
[2018-02-12 08:07] VITALS: BP 124/63
[2018-02-12 08:27] LABS: BASOPHILS % (AUTO) 0.7 % (0.0-2.0); EOSINOPHILS % (AUTO) 2.5 % (0.0-6.0); HEMATOCRIT 29 % (33-45); HEMOGLOBIN 9.5 g/dL (11.5-14.8); LYMPHOCYTES # (AUTO) 1.9 /CMM (0.8-4.8); LYMPHOCYTES % (AUTO) 29.8 % (20.0-44.0); MEAN CORPUSCULAR HGB CONC 33 g/dl (31.0-36.0); MEAN CORPUSCULAR VOLUME 88 fL (82-100); MONOCYTES # (AUTO) 0.6 /CMM (0.1-1.30); MONOCYTES % (AUTO) 9.6 % (2.0-12.0); NEUTROPHILS # (AUTO) 3.7 /CMM (1.8-8.9); NEUTROPHILS % (AUTO) 57.4 % (43.0-81.0); PLATELET COUNT (AUTO) 310 /CMM (150-450); RDW COEFFICIENT OF VARIATION 16.6 (11.5-15.0); RED BLOOD CELL COUNT(AUTO) 3.32 MIL/uL (4.0-5.2); WHITE BLOOD COUNT (AUTO) 6.4 K/uL (4.3-11.0)
[2018-02-12 08:35] LABS: CALCIUM, SERUM 8.8 mg/dL (8.5-10.1); CARBON DIOXIDE 19 mmol/L (21-32); CHLORIDE 110 mmol/L (98-107); GLUCOSE 79 mg/dL (74-106); MAGNESIUM 1.8 mg/dL (1.8-2.4); PHOSPHORUS 3.7 mg/dL (2.5-4.9); POTASSIUM 4.6 mmol/L (3.5-5.1); SODIUM SERUM 141 mmol/L (136-145); UREA NITROGEN, BLOOD 23 mg/dL (7-18)
[2018-02-12] MEDS: SERTRALINE HCL 50 MG TABLET PO SCH (08:37)
[2018-02-12] MEDS: MEGESTROL ACETATE 40 MG TABLET PO SCH ×2 (08:37→16:47)
[2018-02-12] MEDS: MEMANTINE HCL 5 MG TABLET PO SCH ×2 (08:37→16:47)
[2018-02-12] MEDS: BRIMONIDINE TARTRATE OPHT SOLN 5 ML BOTTLE EACHEYE SCH ×2 (08:38→16:48)
[2018-02-12] MEDS: ALPHAGAN P 0.1% EACHEYE SCH ×2 (08:38→16:48)
[2018-02-12] MEDS: DONEPEZIL 5 MG TABLET PO SCH (08:38)
[2018-02-12] MEDS: HEPARIN SODIUM, PORCINE 5000 UNITS/1 ML VIAL SQ SCH ×2 (08:38→21:00)
[2018-02-12] MEDS: ASPIRIN EC 81 MG TABLET.DR PO SCH (08:38)
[2018-02-12] MEDS: IV D5W 1,000 ML IV PRN (11:37)
[2018-02-12 16:14] VITALS: BP 123/78
[2018-02-12 16:21] VITALS: BP 131/76
[2018-02-12 20:00] VITALS: BP 143/72
[2018-02-12] MEDS: CEFTRIAXONE 1 G in IV D5W 50 ML IV SCH (21:30)
[2018-02-12] MEDS: clonazePAM 0.5 MG TABLET PO SCH (21:30)
[2018-02-12] MEDS: MIRTAZAPINE 15 MG TABLET PO SCH (21:31)
[2018-02-13] MEDS: BLOOD SUGAR DIAGNOSTIC 1 EACH STRIP IN SCH ×5 (00:14→23:11)
[2018-02-13 07:48] VITALS: BP 142/67
[2018-02-13 08:00] VITALS: BP 142/67
[2018-02-13] MEDS: ENSURE ENLIVE CHOC 237 ML CAN PO SCH ×2 (08:00→17:00)
[2018-02-13] MEDS: HEPARIN SODIUM, PORCINE 5000 UNITS/1 ML VIAL SQ SCH ×2 (08:29→21:30)
[2018-02-13] MEDS: DONEPEZIL 5 MG TABLET PO SCH (08:33)
[2018-02-13] MEDS: BRIMONIDINE TARTRATE OPHT SOLN 5 ML BOTTLE EACHEYE SCH ×2 (08:33→17:38)
[2018-02-13] MEDS: MEGESTROL ACETATE 40 MG TABLET PO SCH ×2 (08:33→17:37)
[2018-02-13] MEDS: MEMANTINE HCL 5 MG TABLET PO SCH ×2 (08:33→17:37)
[2018-02-13] MEDS: ALPHAGAN P 0.1% EACHEYE SCH ×2 (08:33→17:38)
[2018-02-13] MEDS: ASPIRIN EC 81 MG TABLET.DR PO SCH (08:33)
[2018-02-13] MEDS: SERTRALINE HCL 50 MG TABLET PO SCH (08:33)
[2018-02-13] MEDS ORDERED: ANESTHESIA TRAY IN PYXIS 1 EA TRAY MC ONE (11:58)
[2018-02-13 13:13] LABS: CALCITRIOL VIT D,1, 25 DIHYDRO 31.2 pg/mL (19.9-79.3)
[2018-02-13 15:45] VITALS: BP 144/69
[2018-02-13 16:00] VITALS: BP 144/69
[2018-02-13 20:00] VITALS: BP 143/69
[2018-02-13] MEDS: CEFTRIAXONE 1 G in IV D5W 50 ML IV SCH (21:20)
[2018-02-13] MEDS: clonazePAM 0.5 MG TABLET PO SCH (21:21)
[2018-02-13] MEDS: MIRTAZAPINE 15 MG TABLET PO SCH (21:21)
[2018-02-13] MEDS: IV D5W 1,000 ML IV PRN (23:11)
[2018-02-14] MEDS: BLOOD SUGAR DIAGNOSTIC 1 EACH STRIP IN SCH ×2 (05:02→12:17)
[2018-02-14 08:00] VITALS: BP 126/57
[2018-02-14] MEDS: MEMANTINE HCL 5 MG TABLET PO SCH (08:43)
[2018-02-14] MEDS: MEGESTROL ACETATE 40 MG TABLET PO SCH (08:43)
[2018-02-14] MEDS: DONEPEZIL 5 MG TABLET PO SCH (08:43)
[2018-02-14] MEDS: SERTRALINE HCL 50 MG TABLET PO SCH (08:43)
[2018-02-14] MEDS: ENSURE ENLIVE CHOC 237 ML CAN PO SCH (08:43)
[2018-02-14] MEDS: ASPIRIN EC 81 MG TABLET.DR PO SCH (08:44)
[2018-02-14] MEDS: HEPARIN SODIUM, PORCINE 5000 UNITS/1 ML VIAL SQ SCH (08:45)
[2018-02-14] MEDS: ALPHAGAN P 0.1% EACHEYE SCH (08:46)
[2018-02-14] MEDS: BRIMONIDINE TARTRATE OPHT SOLN 5 ML BOTTLE EACHEYE SCH (08:47)
[2018-02-14] MEDS ORDERED: IV NS 0.9% 250 ML IV ONE (15:30)
[2018-02-14] MEDS ORDERED: CEFTRIAXONE 1 G in IV NS 0.9% 50 ML IV SCH (21:00)
[2018-02-16] MEDS ORDERED: ALENDRONATE 70 MG TABLET PO SCH (07:30)
== END 2018-02-14 16:00 | DRG 871 ==
LOC: ER 17:13 → MED 20:07 → MEDSG2 02-12 06:05
PROVIDERS: ADMIT Nurse Practitioner Acute Care; ATTEND Nurse Practitioner Acute Care
PROC: 0DH63UZ Insertion of Feeding Device into Stomach, Percutaneous Approach (ICD-10-PCS; 2018-02-13)
PROC: 0DB78ZX Excision of Stomach, Pylorus, Via Natural or Artificial Opening Endoscopic, Diagnostic (ICD-10-PCS; principal; 2018-02-13 12:55)
DX: A41.9 Sepsis, unspecified organism (principal); N17.0 Acute kidney failure with tubular necrosis; L89.150 Pressure ulcer of sacral region, unstageable; E44.0 Moderate protein-calorie malnutrition; G92 Toxic encephalopathy; E87.0 Hyperosmolality and hypernatremia; E87.2 Acidosis; E88.09 Other disorders of plasma-protein metabolism, not elsewhere classified; N39.0 Urinary tract infection, site not specified; Z68.1 Body mass index [BMI] 19.9 or less, adult; I12.9 Hypertensive chronic kidney disease with stage 1 through stage 4 chronic kidney disease, or unspecified chronic kidney disease; N18.9 Chronic kidney disease, unspecified; E86.0 Dehydration; B96.20 Unspecified Escherichia coli [E. coli] as the cause of diseases classified elsewhere; E16.2 Hypoglycemia, unspecified; E78.5 Hyperlipidemia, unspecified; F03.90 Unspecified dementia, unspecified severity, without behavioral disturbance, psychotic disturbance, mood disturbance, and anxiety; F32.9 Major depressive disorder, single episode, unspecified; H40.9 Unspecified glaucoma; K29.80 Duodenitis without bleeding; K21.9 Gastro-esophageal reflux disease without esophagitis; R62.7 Adult failure to thrive; D63.8 Anemia in other chronic diseases classified elsewhere; E86.9 Volume depletion, unspecified; K29.50 Unspecified chronic gastritis without bleeding; F09 Unspecified mental disorder due to known physiological condition
CPT/HCPCS: 36415; 43246; 71045-TC; 80048-TC; 80061-TC; 80076-TC; 81000-TC; 82306; 82570-TC; 82652; 82962-TC; 83605-TC; 83735-TC; 83970; 84100-TC; 84134-TC; 84155-TC; 84300-TC; 84484-TC; 85025-TC; 85730-TC; 87040-TC; 87081-TC; 87086-TC; 87186-TC; 88305-TC; 88313-TC; 88342; 92521; 97110-TC; 97116-TC; 97530-TC; A4216; A4606; J0696; J1644; J2543; J3475; J3480; J3490; J7030; J7042; J7050; J7060; J7070; Z7610

== ENCOUNTER 2018-02-21 15:10 | Emergency (ER) | payer MEDICARE, MEDICAID ==
[~2018-02-21] VITALS: Ht 167.6 cm; Wt 42.6 kg
[~2018-02-21 15:10] MED LIST changes: -BRIM5DRO3 RIGHTEYE; +CELE-85 PO; -LINA145C PO; +MIRT30TA7 PO; +SERT50TA PO; +ZOLP10TA6 PO
--- NOTE | 2018-02-21 15:20 | NUR ---
[facility] FROM [facility] C/O ABLABS, BUNCR 40/1.84 K 5.9. NAD NOTED, VSS, RESP EVEN AND UNLABORED. PT WAS PUT ON MONITOR, WAITING FOR MD SALMON.
[2018-02-21 16:01] LABS: BASOPHILS # (AUTO) 0.1 /CMM (0.0-0.2); BASOPHILS % (AUTO) 1.1 % (0.0-2.0); EOSINOPHILS % (AUTO) 2.5 % (0.0-6.0); HEMATOCRIT 25 % (33-45); HEMOGLOBIN 8.3 g/dL (11.5-14.8); LYMPHOCYTES # (AUTO) 1.9 /CMM (0.8-4.8); LYMPHOCYTES % (AUTO) 25.1 % (20.0-44.0); MEAN CORPUSCULAR HGB CONC 33 g/dl (31.0-36.0); MEAN CORPUSCULAR VOLUME 88 fL (82-100); MONOCYTES # (AUTO) 0.5 /CMM (0.1-1.30); MONOCYTES % (AUTO) 6.1 % (2.0-12.0); NEUTROPHILS # (AUTO) 4.9 /CMM (1.8-8.9); NEUTROPHILS % (AUTO) 65.2 % (43.0-81.0); PLATELET COUNT (AUTO) 412 /CMM (150-450); RDW COEFFICIENT OF VARIATION 16.2 (11.5-15.0); RED BLOOD CELL COUNT(AUTO) 2.85 MIL/uL (4.0-5.2); WHITE BLOOD COUNT (AUTO) 7.6 K/uL (4.3-11.0)
[2018-02-21 16:15] LABS: INR 0.92 (0.85-1.15)
[2018-02-21 16:16] LABS: CALCIUM, SERUM 8.3 mg/dL (8.5-10.1); CARBON DIOXIDE 24 mmol/L (21-32); CHLORIDE 109 mmol/L (98-107); CREATININE 2.3 mg/dL (0.6-1.3); GLUCOSE 114 mg/dL (74-106); POTASSIUM 5.5 mmol/L (3.5-5.1); SODIUM SERUM 139 mmol/L (136-145); UREA NITROGEN, BLOOD 44 mg/dL (7-18)
[2018-02-21 16:21] LABS: ALANINE AMINOTRANSFERASE 20 U/L (12-78); ALBUMIN 2.7 g/dL (3.4-5.0); ALKALINE PHOSPHATASE 33 U/L (46-116); ASPARTATE AMINOTRANSFERASE 21 U/L (15-37); BILIRUBIN,TOTAL 0.2 mg/dL (0.2-1.0); TOTAL PROTEIN, SERUM 6.4 g/dL (6.4-8.2)
--- NOTE | 2018-02-21 16:50 | NUR ---
URINE COLLECTED SENT TO LAB
[2018-02-21] MEDS ORDERED: SODIUM POLYSTYRENE SULFONATE 15 G/60 ML BOTTLE PO ONE (17:00)
[2018-02-21] MEDS ORDERED: ALBUTEROL FS 2.5 MG/3 ML VIAL.NEB NEB ONE (17:00)
[2018-02-21] MEDS ORDERED: DEXTROSE 50%-WATER 50 ML DISP.SYRIN IV ONE (17:00)
[2018-02-21] MEDS ORDERED: SODIUM POLYSTYRENE SULFONATE 15 G/60 ML BOTTLE ONE (17:04)
[2018-02-21] MEDS ORDERED: INSULIN REGULAR, HUMAN 100 UNIT/ML 10 ML VIAL ONE (17:05)
[2018-02-21] MEDS ORDERED: DEXTROSE 50%-WATER 50 ML DISP.SYRIN ONE (17:05)
[2018-02-21] MEDS: INSULIN REGULAR, HUMAN 100 UNIT/ML 10 ML VIAL IV ONE ×2 (17:08→17:51)
--- NOTE | 2018-02-21 17:18 | NUR ---
PAGED GROUP, ENERGY ECONOMIST
[2018-02-21] MEDS ORDERED: ALBUTEROL FS 2.5 MG/3 ML VIAL.NEB ONE (17:24)
[2018-02-21 17:25] LABS: APPEARANCE,URINE Slightly Cloudy (CLEAR); BILIRUBIN,URINE Negative (NEGATIVE); BLOOD, URINE Negative Ery/uL (NEGATIVE); COLOR,URINE Yellow (YELLOW); KETONES,URINE Negative (NEGATIVE); LEUKOCYTE ESTERASE ,URINE Negative (NEGATIVE); NITRITE, URINE Negative (NEGATIVE); PROTEIN,URINE Negative (NEGATIVE); UGLUCOSE Negative (NEGATIVE); UROBILINOGEN,URINE 0.2 EU/dL (0.2)
--- NOTE | 2018-02-21 19:54 | NUR ---
REPORT GIVEN TO EMT FOR TRANSPORT
[2018-02-21 20:02] VITALS: BP 127/80
== END 2018-02-21 19:56 | disposition home or self-care (01) ==
LOC: ER 15:16
DX: E87.5 Hyperkalemia (principal); D63.1 Anemia in chronic kidney disease; I12.9 Hypertensive chronic kidney disease with stage 1 through stage 4 chronic kidney disease, or unspecified chronic kidney disease; N18.9 Chronic kidney disease, unspecified; E78.5 Hyperlipidemia, unspecified; F03.90 Unspecified dementia, unspecified severity, without behavioral disturbance, psychotic disturbance, mood disturbance, and anxiety; F32.9 Major depressive disorder, single episode, unspecified; F41.9 Anxiety disorder, unspecified; G93.40 Encephalopathy, unspecified; R13.10 Dysphagia, unspecified; M81.0 Age-related osteoporosis without current pathological fracture; N39.0 Urinary tract infection, site not specified; Z79.4 Long term (current) use of insulin; Z79.82 Long term (current) use of aspirin; Z93.1 Gastrostomy status; R05 Cough
CPT/HCPCS: 36415; 71045-TC; 80048-TC; 80076-TC; 81000-TC; 82962-TC; 84132-TC; 85025-TC; 85730-TC; 87086-TC; A4606; J1815; Z7610